=== PATIENT | female | born 1980 | race African-American/Black ===

== ENCOUNTER → 2020-09-09 | Outpatient (CLI) | payer MEDICAID ==
[~2020-09-09] MED LIST: FENTANYL CITRATE/PF 50MCG/ML 2ML VIAL ONE; GLYCOPYRROLATE 0.2 MG/ML 2ML VIAL ONE; METOCLOPRAMIDE HCL 10MG/2ML VIAL ONE; MIDAZOLAM HCL 2 MG/2 ML VIAL ONE; ONDANSETRON HCL 4MG/2ML INJ ONE; PROPOFOL 200MG/20ML VIAL IV ONE; SERT50TA PO; SUCCINYLCHOLINE CHLORIDE 200MG/10ML IV ONE
== END | disposition home or self-care (01) ==
LOC: LAB 11:07
DX: Z01.812 Encounter for preprocedural laboratory examination (principal); Z20.828 Contact with and (suspected) exposure to other viral communicable diseases
CPT/HCPCS: C9803; U0003

== ENCOUNTER → 2020-09-12 | Day surgery (SDC) | payer MEDICAID ==
[~2020-09-12] VITALS: Ht 160 cm; Wt 70.3 kg
[~2020-09-12] MED LIST changes: -FENTANYL CITRATE/PF 50MCG/ML 2ML VIAL ONE; -GLYCOPYRROLATE 0.2 MG/ML 2ML VIAL ONE; +HYDROCODONE/ACETAMINOPHEN 5/325MG TABLET PO PRN; +HYDROMORPHONE HCL/PF 2MG/ML CPJ IV PRN; +LACTATED RINGERS 1,000 ML IV SCH; +MEPERIDINE HCL/PF 25MG/ML CPJ IV PRN; -METOCLOPRAMIDE HCL 10MG/2ML VIAL ONE; -MIDAZOLAM HCL 2 MG/2 ML VIAL ONE; +MORPHINE SULFATE 2 MG/ML CPJ (NOT FOR IM USE) IV PRN; +ONDANSETRON HCL 4MG/2ML INJ IV PRN; -ONDANSETRON HCL 4MG/2ML INJ ONE; -PROPOFOL 200MG/20ML VIAL IV ONE; +SODIUM CHLORIDE 0.9% 1,000 ML IV ONE; -SUCCINYLCHOLINE CHLORIDE 200MG/10ML IV ONE
[2020-09-12 08:28] LABS: UCG SCREEN NEGATIVE
[2020-09-12 08:29] LABS: CLARITY URINE CLEAR (CLEAR); COLOR URINE YELLOW (YELLOW); KETONES URINE NEGATIVE (NEGATIVE); LEUKOCYTE ESTERASE URINE TRACE (NEGATIVE); NITRITE URINE NEGATIVE (NEGATIVE); OCCULT BLOOD URINE TRACE (NEGATIVE); PH URINE 5.5 (4.5-8.0); PROTEIN URINE NEGATIVE (NEGATIVE); SPECIFIC GRAVITY URINE 1.021 (1.005-1.030); UROBILINOGEN URINE 0.2 E.U./dL (0.2-1.0)
[2020-09-12 09:10] LABS: BASOPHILS % 0.8 % (0.0-2.0); EOSINOPHILS % 5.7 % (0.0-5.0); HEMATOCRIT. 39.6 % (36.0-48.0); HEMOGLOBIN. 12.7 g/dL (12.0-16.0); LYMPHOCYTES % 41.5 % (20.0-50.0); MEAN CORPUSCULAR HEMOGLOBIN 24.3 pg (28.0-32.0); MEAN PLATELET VOLUME 8.9 fl (7.4-10.4); MONOCYTES % 5.2 % (2.0-8.0); NEUTROPHILS % 46.8 % (40.0-76.0); PLATELET 284 x1000/uL (130-400); RED BLOOD CELL COUNT 5.22 mill/uL (4.2-5.4); RED CELL DISTRIBUTION WIDTH 17.6 % (11.6-14.6)
[2020-09-12 09:20] LABS: CHLORIDE 110 mEq/L (98-107)
[2020-09-12 09:30] LABS: PARTIAL THROMBOPLASTIN TIME 32.1 sec (23.4-31.0); PROTHROMBIN TIME 10.3 sec (9.6-11.0)
== END | disposition home or self-care (01) ==
LOC: OR 07:06
PROVIDERS: ATTEND Obstetrics & Gynecology
DX: N93.8 Other specified abnormal uterine and vaginal bleeding (principal); N85.2 Hypertrophy of uterus; F41.9 Anxiety disorder, unspecified; Z79.899 Other long term (current) drug therapy; Z98.890 Other specified postprocedural states
CPT/HCPCS: 36415; 58563; 80048; 81003; 81025; 85025; 85610; 85730; 88305; J0330; J2250; J2405; J2704; J2765; J3010; J3490

== ENCOUNTER → 2020-10-24 | Outpatient (CLI) | payer MEDICAID ==
[~2020-10-24] MED LIST changes: -HYDROCODONE/ACETAMINOPHEN 5/325MG TABLET PO PRN; -HYDROMORPHONE HCL/PF 2MG/ML CPJ IV PRN; -LACTATED RINGERS 1,000 ML IV SCH; -MEPERIDINE HCL/PF 25MG/ML CPJ IV PRN; -MORPHINE SULFATE 2 MG/ML CPJ (NOT FOR IM USE) IV PRN; -ONDANSETRON HCL 4MG/2ML INJ IV PRN; -SODIUM CHLORIDE 0.9% 1,000 ML IV ONE
== END | disposition home or self-care (01) ==
LOC: LAB 09:11
PROVIDERS: ATTEND Obstetrics & Gynecology
DX: Z01.812 Encounter for preprocedural laboratory examination (principal); Z20.828 Contact with and (suspected) exposure to other viral communicable diseases
CPT/HCPCS: 87426

== ENCOUNTER → 2020-10-27 | Day surgery (SDC) | payer MEDICAID ==
[~2020-10-27] VITALS: Ht 160 cm; Wt 73.9 kg
[~2020-10-27] MED LIST changes: +BUPIVACAINE HCL 0.5% (5MG/ML) 50ML ONE; +CEFAZOLIN SODIUM 1000MG/VIAL ONE; +FENTANYL CITRATE/PF 50MCG/ML 2ML VIAL ONE; +HYDROCODONE/ACETAMINOPHEN 5/325MG TABLET PO PRN; +LACTATED RINGERS 1,000 ML IV SCH; +MIDAZOLAM HCL 2 MG/2 ML VIAL ONE; +MORPHINE SULFATE 2 MG/ML CPJ (NOT FOR IM USE) IV PRN; +ONDANSETRON HCL 4MG/2ML INJ IV PRN; +PROPOFOL 200MG/20ML VIAL IV ONE; +ROCURONIUM BROMIDE 10MG/ML VIAL 5ML IV ONE; +ROPIVACAINE HCL 10MG/ML 20 ML VIAL EPI ONE; +SKIN ADHESIVE 0.7 GM EA TOP ONE; +SUCCINYLCHOLINE CHLORIDE 200MG/10ML IV ONE; +VASOPRESSIN 20 UNIT/ML 1ML ONE
[2020-10-27 06:33] LABS: BASOPHILS % 1.2 % (0.0-2.0); EOSINOPHILS % 4.4 % (0.0-5.0); HEMATOCRIT. 40.2 % (36.0-48.0); HEMOGLOBIN. 12.8 g/dL (12.0-16.0); LYMPHOCYTES % 34.4 % (20.0-50.0); MEAN CORPUSCULAR HEMOGLOBIN 24.1 pg (28.0-32.0); MEAN CORPUSCULAR VOLUME 75.5 fL (81.0-99.0); MEAN PLATELET VOLUME 8.7 fl (7.4-10.4); MONOCYTES % 5.7 % (2.0-8.0); NEUTROPHILS % 54.3 % (40.0-76.0); PLATELET 307 x1000/uL (130-400); RED BLOOD CELL COUNT 5.33 mill/uL (4.2-5.4); RED CELL DISTRIBUTION WIDTH 17.3 % (11.6-14.6)
[2020-10-27 06:43] LABS: PARTIAL THROMBOPLASTIN TIME 32.6 sec (23.4-31.0); PROTHROMBIN TIME 10.6 sec (9.6-11.0)
[2020-10-27 06:47] LABS: CLARITY URINE CLEAR (CLEAR); COLOR URINE YELLOW (YELLOW); KETONES URINE NEGATIVE (NEGATIVE); LEUKOCYTE ESTERASE URINE NEGATIVE (NEGATIVE); NITRITE URINE NEGATIVE (NEGATIVE); OCCULT BLOOD URINE 1+ (NEGATIVE); PROTEIN URINE NEGATIVE (NEGATIVE); SPECIFIC GRAVITY URINE 1.026 (1.005-1.030); UROBILINOGEN URINE 0.2 E.U./dL (0.2-1.0)
[2020-10-27 06:47] LABS: CHLORIDE 106 mEq/L (98-107)
[2020-10-27 06:49] LABS: UCG SCREEN NEGATIVE
[2020-10-27] MEDS: HYDROMORPHONE HCL/PF 2MG/ML CPJ IV PRN ×4 (12:03→12:21)
[2020-10-27 12:21] VITALS: BP 125/77
== END | disposition home or self-care (01) ==
LOC: OR 06:20
PROVIDERS: ATTEND Obstetrics & Gynecology
DX: D25.9 Leiomyoma of uterus, unspecified (principal); N93.8 Other specified abnormal uterine and vaginal bleeding; F41.9 Anxiety disorder, unspecified; Z79.899 Other long term (current) drug therapy; Z98.890 Other specified postprocedural states
CPT/HCPCS: 36415; 58544; 80048; 81003; 81025; 85025; 85610; 85730; 86850; 86900; 86901; 88307; C1725; J0330; J0690; J1170; J2250; J2704; J2795; J3010; J3490; S2900

== ENCOUNTER 2020-11-12 12:18 | Emergency (ER) | payer MEDICAID ==
[~2020-11-12] VITALS: Ht 165.1 cm; Wt 74.0 kg
[~2020-11-12 12:18] MED LIST changes: -BUPIVACAINE HCL 0.5% (5MG/ML) 50ML ONE; -CEFAZOLIN SODIUM 1000MG/VIAL ONE; -FENTANYL CITRATE/PF 50MCG/ML 2ML VIAL ONE; -HYDROCODONE/ACETAMINOPHEN 5/325MG TABLET PO PRN; -LACTATED RINGERS 1,000 ML IV SCH; -MIDAZOLAM HCL 2 MG/2 ML VIAL ONE; -MORPHINE SULFATE 2 MG/ML CPJ (NOT FOR IM USE) IV PRN; -ONDANSETRON HCL 4MG/2ML INJ IV PRN; -PROPOFOL 200MG/20ML VIAL IV ONE; -ROCURONIUM BROMIDE 10MG/ML VIAL 5ML IV ONE; -ROPIVACAINE HCL 10MG/ML 20 ML VIAL EPI ONE; -SKIN ADHESIVE 0.7 GM EA TOP ONE; -SUCCINYLCHOLINE CHLORIDE 200MG/10ML IV ONE; -VASOPRESSIN 20 UNIT/ML 1ML ONE
[2020-11-12 12:22] VITALS: BP 123/82
[2020-11-12] MEDS ORDERED: PANTOPRAZOLE SODIUM 40 MG/VIAL IV STA (14:43)
[2020-11-12 15:38] LABS: EOSINOPHILS % 6.4 % (0.0-5.0); HEMATOCRIT. 38.8 % (36.0-48.0); HEMOGLOBIN. 12.7 g/dL (12.0-16.0); LYMPHOCYTES % 32.5 % (20.0-50.0); MEAN CORPUSCULAR HEMOGLOBIN 24.2 pg (28.0-32.0); MEAN CORPUSCULAR VOLUME 73.9 fL (81.0-99.0); MEAN PLATELET VOLUME 8.7 fl (7.4-10.4); MONOCYTES % 4.6 % (2.0-8.0); NEUTROPHILS % 55.5 % (40.0-76.0); PLATELET 423 x1000/uL (130-400); RED BLOOD CELL COUNT 5.25 mill/uL (4.2-5.4); RED CELL DISTRIBUTION WIDTH 17.6 % (11.6-14.6)
[2020-11-12 15:44] LABS: CHLORIDE 102 mEq/L (98-107)
[2020-11-12 16:05] LABS: HCG SCREEN NEGATIVE
[2020-11-12 19:20] LABS: PROTHROMBIN TIME 10.9 sec (9.6-11.0)
== END 2020-11-12 21:11 | disposition home or self-care (01) ==
LOC: ER 12:18 → CANBEDREQ 23:59
DX: R42 Dizziness and giddiness (principal); K92.1 Melena; Z90.710 Acquired absence of both cervix and uterus; F84.0 Autistic disorder
CPT/HCPCS: 36415; 71045; 74177; 80053; 83605; 83690; 84484; 84703; 85025; 85610; 93005; 96374; 99285; C9113